=== PATIENT | male | born 1955 | race Caucasian/White ===

== ENCOUNTER → 2020-01-02 08:15 | Outpatient (CLI) | payer OTHER, SELFPAY ==
[2020-01-02 10:48] LABS: Coronavirus 19 IgG Antibody Negative (Negative); Coronavirus 19 IgM Antibody Negative (Negative)
== END ==
PROVIDERS: Visit Provider Internal Medicine Gastroenterology
DX: Z01.818 Encounter for other preprocedural examination (principal)
CPT/HCPCS: 36415; 86328

== ENCOUNTER 2020-01-05 11:15 | Day surgery (SDC) | payer BC, SELFPAY ==
[2019-12-30 17:20] VITALS: BMI 25.9
[2020-01-05] VITALS (8 sets, daily range): BP systolic 85–123; BP diastolic 53–73; PULSE 56–72; RESP 18; TEMP 36.1–36.4; O2SAT 91–99
--- NOTE | 2020-01-05 12:44 | HMH.ANESCL ---
[facility] Anesthesia Checklist - Patient Identification Patient Identification: Arm Band, Verbal (Name & ) - Structural Data Admitted From: Home Planned Operative Procedure/s: egd/ colon Consent for Planned Operative Procedure(s) Verified: Yes Verified Documents: History and Physical - NPO Status Verified Time NPO: 00:00 - Chart Verification Results Verified: CBC, BMP - Additional verifications Patient : No Anesthesia Reactions: No Hx Blood Transfusions: No Blood Transfusion Reaction: No Cephalosporin Allergy: No Previous Colonoscopy: No - Cardiovascular Assessment Heart Sounds: S1 & S2 Pulse Strength: Baseline Pulse Rhythm: Regular Peripheral Edema: No - Airway Assessment C-Spine Mobility Assessed: Yes TMJ Mobility Assessed: Yes Dentition: Dentures-good fit - Neurological Assessment Level of Consciousness: Awake, Alert, Appropriate Hx Seizures: No Numbness or tingling in extremities: No - Anesthesia Plan Anesthesia Risk discussed: Yes Anesthesia Plan: Verified ASA Class: II Anesthesia Type: MAC [facility] History I have reviewed the patient's past medical history: Yes Medical History: Denies:: Cancer, Diabetes Mellitus Type 1, Diabetes Mellitus Type 2, Internal Pacemaker, MRSA, Seizures *Have you ever received a pneumonia vaccine?: No *Have you received a flu vaccine this season?: No Anesthesia experience/problems:: none Other Surgeries: No: Pacemaker Amputation: No Fractures: No - *Social History Smoking Status: Current every day smoker # Packs/Day (cigarettes): 2 Alcohol Intake: never Substance Use Type: other *Occupational Status:: employed Housing: house Household Members: spouse *Travel in the last 8 weeks: None Family Hx:: Other
--- NOTE | 2020-01-05 13:00 | HMH.PROC ---
[facility] Procedure Note Procedure Note:: Upper Endoscopy Procedure Report: Esophagogastroduodenoscopy with cold biopsies Endoscopost: Eric Castillo II, MD Referring Physician: Kelsey PUGH Date of Procedure: January 05, 2020 Equipment: Olympus GIF 180 standard upper endoscope Sedation: MAC sedation Indications: Mr. Davis is a 64-year-old gentleman who developed left upper quadrant abdominal pain recently radiating across the upper abdomen. He subsequently had resolution but had gas in the retrosternal region with belching and some chest pressure. He felt the need to belch. Over the last 2 months, he has had an 11 pound weight loss. He has had marked nausea and early satiety. He states that he cannot eat much. He has had some bloating. He also has had a change in his bowel habits. He did have a bowel movement daily but now he can go up to 3 days or even 1 to 2 weeks without a bowel movement. He is here for diagnostic upper endoscopy and colonoscopy. Procedure: Prior to the procedure, a history and physical exam was performed, and patient's medications and allergies were reviewed. The risks, benefits and alternatives of the sedation and procedure were discussed with the patient. All questions were answered and informed consent was obtained. The patient was brought to the procedure room. Patient identification and proposed procedure were verified by the physician and the nurse. The patient was placed in a left lateral decubitus position and the scope was passed under direct vision. Throughout the procedure, the patient's blood pressure, pulse, and oxygen saturations were monitored continuously. The upper GI endoscopy was accomplished without difficulty. The patient tolerated the procedure well. Findings: The scope was passed directly into the upper esophagus and advanced to the third portion of the duodenum. The post bulbar duodenum and the second and third portion was normal. The first portion of the duodenum and the distal duodenal bulb had moderate to marked edema. Cold biopsies were obtained. There was no stricturing. There was duodenitis of the duodenal bulb. The scope was withdrawn through a normal pylorus into the stomach. There was linear reactive gastropathy of the antrum with bile reflux. There was also evidence of gastric stasis with some solid food content and an oily/greasy appearance with fat micelles seen within the retained digestive fluid and food. Upon retroflexion there was no hiatal hernia. 2 biopsies were taken in the antrum and along the lesser curvature for histology to rule out gastritis and/or H pylori. The scope was then withdrawn into the esophagus. There was no evidence of reflux esophagitis or stricturing. There was nonerosive GERD. A biopsy was taken at the GE junction. There was also mild esophageal dysmotility. The remainder of the esophageal mucosa was normal. Impression: 1. Nonerosive GERD with mild esophageal dysmotility 2. Gastric dysmotility with some gastric stasis (possible early gastroparesis) 3. Bile reflux with linear reactive gastropathy 4. Moderate edema/erythema of first portion of duodenum?rule out peptic duodenitis Plan: I will follow-up the biopsies. We will discuss additional dietary measures and treatment options. I do feel that this is related to his obstipation. I will proceed with diagnostic colonoscopy.
--- NOTE | 2020-01-05 13:26 | HMH.PROC ---
[facility] Procedure Note Procedure Note:: Colonoscopy Procedure Report: Colonoscopy with cold snare polypectomy Endoscopist: Eric Castillo II, MD Referring physician: Kelsey PUGH Date of Procedure: January 05, 2020 Equipment: Olympus 180 variable stiffness pediatric colonoscope Sedation: MAC sedation Indication: Mr. Davis is a 64-year-old gentleman who is here for diagnostic colonoscopy. He has had a change in bowel habits. He formerly would have a bowel movement daily but now he may go up to 1 to 2 weeks. He has noted left sided and left upper quadrant abdominal pain and discomfort. He has lost 11 pounds in the last 2 months and has significant early satiety and bloating. He reports no rectal bleeding or family history of colon cancer. This is his first colonoscopy. He has not had a CAT scan of the abdomen. He does smoke 2 packs of cigarettes daily. Procedure: Prior to the procedure, a history and physical exam was performed, and patient's medications and allergies were reviewed. The risks, benefits and alternatives of the sedation and procedure were discussed with the patient. All questions were answered and informed consent was obtained. The patient was brought to the procedure room. Patient identification and proposed procedure were verified by the physician and the nurse. The patient was placed in a left lateral decubitus position and the scope was passed under direct vision. Throughout the procedure, the patient's blood pressure, pulse, and oxygen saturations were monitored continuously. The colonoscopy was accomplished without difficulty. The patient tolerated the procedure well. Findings: On digital rectal examination there was normal rectal tone. There were no external hemorrhoids. The prostate was 2+, smooth symmetric without nodules. The colonoscope was introduced through the anal canal to the rectum and advanced to the cecum. The ileocecal valve and appendiceal orifice were identified. The scope was advanced a short distance into the ileum which appeared grossly normal. The scope was then withdrawn into the colon. The cecum was normal. There was 5 colon polyps (ascending x1 (5 mm), transverse x1 (5 mm) and sigmoid x3 (4, 4 and 5 mm)). All of these polyps were removed via cold snare polypectomy. The remainder of the colonic mucosa was normal. Upon retroflexion within the rectum there were grade 1-2 internal hemorrhoids.The preparation was excellent throughout with [place] Preparation Score of 9. The cecal time was 12 minutes. Impression: 1. Colonic polyps x5 2. Grade 1-2 internal hemorrhoids Plan: I am going to recommend CT scan of the abdomen and pelvis. I am concerned about his clinical symptoms and have concern for pancreatic tail. I would also have some concern about mesenteric angina based upon his smoking history. I will have him undergo IV contrast exam. I do feel that some of his dyspepsia is related to his obstipation. We will discuss treatment options. I will follow-up the polyp histology and recommend repeat screening/surveillance colonoscopy again in 3 to 5 years based upon the pathology.
[2020-01-05 13:52] LABS: Blood Urea Nitrogen 22 mg/dl (9-20); Creatinine Clearance Estimated 86 mL/min (50-200); Estimated Glomerular Filt Rate 76 ml/min (>60); GFR (African American) 92 ML/MIN (>60)
[2020-01-05 14:15] LABS: Chloride 108 mmol/L (98-107)
--- NOTE | 2020-01-05 14:15 | CT_ITS ---
Procedure: CT ANGIO ABDOMEN CLINICAL HISTORY: abdominal pain, weight loss COMPARISON: No exams were available for comparison TECHNIQUE: IV Contrast: 100ml Optiray 350 Axial images obtained with sagittal and coronal reformats. All CT scans at the facility use one or more dose reduction, viz: automated exposure control, ma/kV adjustment per patient size (including targeted exams where dose is matched to indication, i.e. head), or iterative reconstruction technique. FINDINGS: Mild atheromatous changes involve the abdominal aorta. There is some minimal dilatation of the distal abdominal aorta at 2.2 cm. No aortic stenosis. The common and external iliacs show mild atheromatous changes but no significant stenosis. The SMA and celiac artery are unremarkable. The HAYLEY is patent. No renal artery stenosis apparent. There are 2 left renal arteries. The superior left renal artery is to the upper pole and is dominant. The gallbladder is contracted with stones with mildly thickened wall. There is intra and extrahepatic biliary ductal dilatation. The the pancreatic duct is also dilated. The common bile duct measures approximately 8 mm within the region of the head of the pancreas. The the common bile duct does appear to end abruptly distally. There is some heterogeneous density within the head of the pancreas with some small foci of calcification along the head of the pancreas anteriorly. No obvious pancreatic mass. No evidence of pancreatitis. No intestinal obstruction or free air. There are some nondistended fluid-filled loops of large and small bowel which may be seen with enterocolitis or ileus. No evidence of appendicitis or diverticulitis. There are some mild degenerative changes in the lumbar spine. Mild degenerative changes of the hips. IMPRESSION: 1. No evidence of celiac or SMA stenosis. 2. Intra and extrahepatic biliary ductal dilatation as well as dilated pancreatic duct consistent with a double duct sign. There is some heterogeneous density in the head of the pancreas. Motion artifact does somewhat obscure fine detail. Cannot exclude a pancreatic lesion or lesion in the ampulla.. A common duct stone could also cause these findings. Suggest ERCP/MRI/MRCP for further evaluation. 3. Cholelithiasis with contracted thickened gallbladder. 4. Fluid-filled loops of small and large bowel with scattered air-fluid levels suggesting enterocolitis/ileus Dictated by: Joaquin Nath MD 01/05/2020 18:09 Electronically signed by Joaquin Nath MD in [place] 01/05/2020 18:09
[2020-01-05 14:16] LABS: Sodium 145 mmol/L (136-145)
[2020-01-05 14:18] LABS: Alanine Aminotransferase 87 U/L (12-78); Amylase 138 U/L (30-110); Aspartate Amino Transferase 57 U/L (17-59); Bilirubin,Total 0.7 mg/dl (0.2-1.3); Blood Urea Nitrogen 18 mg/dl (9-20); Carbon Dioxide 29 mmol/L (22.0-30.0); Creatinine Clearance Estimated 86 mL/min (50-200); Estimated Glomerular Filt Rate 98 ml/min (>60); GFR (African American) 119 ML/MIN (>60)
[2020-01-05 14:19] LABS: Albumin Level 4.2 g/dl (3.5-5.0); Albumin/Globulin Ratio 1.1 (1.1-1.8); Alkaline Phosphatase 69 U/L (38-126); Calcium 9.5 mg/dl (8.4-10.2); Globulin 3.7 g/dL (1.3-3.2); Glucose 103 mg/dl (74-100); Total Protein,Serum 7.9 g/dl (6.3-8.2)
[2020-01-05 14:22] LABS: Lipase 635 U/L (23-300)
[2020-01-05 14:23] LABS: Basophils % 0.5 % (0.1-2.0); Eosinophils # 0.1 K/mm3 (0.0-0.4); Eosinophils % 2.3 % (0.1-12.0); Hematocrit 45.8 % (42.0-52.0); Lymphocytes # 1.5 K/mm3 (0.7-4.5); Lymphocytes % 34.1 % (10-50); Mean Corpuscular HGB Conc 32.7 g/dL (31.8-35.4); Mean Corpuscular Hemoglobin 32.8 pg (27.0-31.2); Mean Corpuscular Volume 100.3 fl (80-94); Mean Platelet Volume 8.7 fl (7.4-10.4); Monocytes # 0.3 K/mm3 (0.1-1.0); Monocytes % 7.2 % (1.7-9.3); Neutrophils # 2.5 K/mm3 (1.8-7.8); Neutrophils % 55.8 % (37.0-80.0); Platelet Count 174 K/mm3 (142-424); Red Blood Count 4.56 M/mm3 (4.60-6.20); Red Cell Distribution Width 12.8 % (11.5-17.5); White Blood Count 4.5 K/mm3 (4.8-10.8)
[2020-01-07 15:27] LABS: CA 19-9 1 U/mL (0-35)
== END 2020-01-05 14:56 | disposition home or self-care (01) ==
PROVIDERS: PCP Nurse Practitioner; Visit Provider Internal Medicine Gastroenterology
PROC: 0DJ08ZZ Inspection of Upper Intestinal Tract, Via Natural or Artificial Opening Endoscopic (ICD-10-PCS; CPT 43235; principal; 2020-01-05 12:30)
DX: K21.9 Gastro-esophageal reflux disease without esophagitis (principal); K63.5 Polyp of colon; K64.0 First degree hemorrhoids; K22.2 Esophageal obstruction; K31.9 Disease of stomach and duodenum, unspecified; K31.89 Other diseases of stomach and duodenum; Z72.0 Tobacco use
CPT/HCPCS: 45385; 43239; 36415; 74175; 80053; 82150; 82565; 83690; 84520; 85025; 86316; J2704; Q9967

== ENCOUNTER → 2020-01-15 07:30 | Outpatient (CLI) | payer BC, SELFPAY ==
[2020-01-15 19:12] LABS: Coronavirus 19 IgG Antibody Negative (Negative); Coronavirus 19 IgM Antibody Negative (Negative)
== END ==
PROVIDERS: Visit Provider Internal Medicine Gastroenterology
DX: Z01.818 Encounter for other preprocedural examination (principal)
CPT/HCPCS: 36415; 86328

== ENCOUNTER 2020-01-16 12:39 | Day surgery (SDC) | payer BC, SELFPAY ==
[2020-01-16 13:40] VITALS: BP 134/72; PULSE 74; RESP 18; TEMP 36.6; O2SAT 99; BMI 21.9
[2020-01-16 14:20] VITALS: O2SAT 97
--- NOTE | 2020-01-16 14:55 | HMH.PROC ---
[facility] Procedure Note Procedure Note:: ERCP procedure Report: Attempted ERCP/EGD with cold biopsies Endoscopist: Eric Castillo II, MD Referring Physician: Kelsey PUGH Date of Procedure: January 16, 2020 Equipment: Olympus 180 side viewing endoscope duodenoscope Sedation: MAC sedation Indication: Mr. Davis is a 64-year-old gentleman with left upper and left-sided abdominal pain and discomfort and weight loss. He has had significant early satiety and bloating. He did undergo panendoscopy with va on January 05, 2020. His upper endoscopy showed gastric stasis/gastric dysmotility and moderate edema of the first portion of the duodenum. The patient's colonoscopy showed 5 polyps (tubular adenomas x5) which were removed. Subsequent lab work showed elevated pancreatic chemistries (amylase 138 and lipase 635). A CT scan of the abdomen on this same day (01/04) showed normal mesenteric vasculature (complete patency of SMA, HAYLEY and celiac artery). There was however evidence of intra-and extrahepatic biliary ductal dilation and an abrupt cut off distally in the CBD. This did measure 8 mm CBD maximally. There also appeared to be heterogeneous density within the head of the pancreas with some small focal calcification along the head of the pancreas. The patient did have a normal CA-19-9 (1) and normal liver chemistries with alkaline phosphatase 69 and total bilirubin 0.7. The ALT was mildly elevated at 87. The patient continues to have difficulty eating with weight loss. Procedure: Prior to the procedure, a history and physical exam was performed, and patient's medications and allergies were reviewed. The risks, benefits and alternatives of the sedation and procedure were discussed with the patient. All questions were answered and informed consent was obtained. The patient was brought to the fluoroscopic radiology room. Patient identification and proposed procedure were verified by the physician and the nurse. The patient was placed in a swimmer's position between left lateral decubitus and prone position and the scope was passed under direct vision. Throughout the procedure, the patient's blood pressure, pulse, and oxygen saturations were monitored continuously. The ERCP was accomplished without difficulty. The patient tolerated the procedure well. Findings: The side-viewing endoscope was passed directly into the upper esophagus and advanced to the first portion of the duodenum. Because of the significant edema within the first portion of the duodenum and portion of the second portion of the duodenum, there was effacement of the ampulla and difficulty anatomically positioning the side-viewing scope for proper cannulation of the ampulla since the ampulla was effaced by edema and erythema. A forward-viewing scope was then advanced to the second portion of the duodenum and again there was such edema that the ampulla could not be adequately visualized for cannulation. Biopsies were taken at the first portion of the duodenum. The procedure was aborted. Again, there was some reactive gastropathy and a moderate to marked amount of retained gastric food content was some fat my cells and oily appearance. The remainder of the esophagus was normal. Impression: 1. Marked duodenal edema first/second portion with the effacement of ampulla resulting in inability to identify and/or cannulate ampulla Plan: I would recommend endoscopic ultrasound of the pancreas at this point. The patient does have normal alkaline phosphatase/bilirubin and normal CA-19-9. I strongly suspect chronic pancreatitis. I am going to recommend avoidance of tobacco and NSAIDs. I will initiate Creon with meals. I will see him back after EUS. I will discuss everything with the patient and family today.
[2020-01-16 15:00] VITALS: BP 90/62; PULSE 79; RESP 18; TEMP 36.1; O2SAT 96
[2020-01-16 15:10] VITALS: BP 88/69; PULSE 74; RESP 18; O2SAT 94
--- NOTE | 2020-01-16 15:13 | P.PN_ITS ---
[facility] Anesthesia Checklist - Patient Identification Patient Identification: Arm Band - Structural Data Admitted From: Home Planned Operative Procedure/s: ercp Consent for Planned Operative Procedure(s) Verified: Yes Verified Documents: Surgical Consent, History and Physical - NPO Status Verified Time NPO: 00:00 - Additional verifications Anesthesia Reactions: No Hx Blood Transfusions: No Blood Transfusion Reaction: No - Airway Assessment C-Spine Mobility Assessed: Yes (mp2) TMJ Mobility Assessed: Yes Dentition: Edentulous - Neurological Assessment Level of Consciousness: Awake, Alert - Anesthesia Plan Anesthesia Risk discussed: Yes Anesthesia Plan: Verified ASA Class: II Anesthesia Type: MAC [facility] History I have reviewed the patient's past medical history: Yes Medical History: Denies:: Cancer, Diabetes Mellitus Type 1, Diabetes Mellitus Type 2, Internal Pacemaker, MRSA, Seizures *Have you ever received a pneumonia vaccine?: No *Have you received a flu vaccine this season?: No Other Medical History: Denies: Blood Transfusion Reaction Anesthesia experience/problems:: nac Other Surgeries: Yes: Colonoscopy, EGD. No: Pacemaker Amputation: No Fractures: No - *Social History Last grade of school completed: GED Smoking Status: Former smoker Tobacco Type: cigarettes # Packs/Day (cigarettes): 1 Smoking End Date: 01/07/20 Alcohol Intake: never Substance Use Type: denies use, other *Occupational Status:: employed Housing: house Household Members: spouse *Travel in the last 8 weeks: None Family Hx:: Coronary Artery Disease, Diabetes, Heart Attack, Hyperlipidemia, Hypertension, Stroke
[2020-01-16 15:20] VITALS: BP 106/81; PULSE 66; RESP 18; O2SAT 96
[2020-01-16 15:50] VITALS: BP 125/78; PULSE 76; RESP 18; O2SAT 96
== END 2020-01-16 15:52 | disposition home or self-care (01) ==
LOC: OUTP 12:41
PROVIDERS: PCP Nurse Practitioner; Visit Provider Internal Medicine Gastroenterology
PROC: (CPT 43261; principal; 2020-01-16 14:00)
DX: R63.4 Abnormal weight loss (principal); Z68.22 Body mass index [BMI] 22.0-22.9, adult; Z87.19 Personal history of other diseases of the digestive system; Z86.010 Personal history of colon polyps; K31.89 Other diseases of stomach and duodenum; R60.0 Localized edema; K31.9 Disease of stomach and duodenum, unspecified; Z82.49 Family history of ischemic heart disease and other diseases of the circulatory system; Z83.3 Family history of diabetes mellitus; Z87.891 Personal history of nicotine dependence; Z79.899 Other long term (current) drug therapy
CPT/HCPCS: 43261; 74330

== ENCOUNTER → 2020-12-17 08:01 | Outpatient (CLI) | payer BC, SELFPAY | PROVIDERS: Visit Provider Internal Medicine Gastroenterology | DX: Z01.812 Encounter for preprocedural laboratory examination (principal); Z11.52 Encounter for screening for COVID-19 | CPT/HCPCS: U0003 ==

== ENCOUNTER → 2021-06-15 12:00 | Outpatient (CLI) | payer BC, OTHER, SELFPAY | PROVIDERS: Visit Provider Internal Medicine Gastroenterology | DX: Z01.812 Encounter for preprocedural laboratory examination (principal); Z11.52 Encounter for screening for COVID-19 | CPT/HCPCS: C9803; U0003; U0005 ==